=== PATIENT | male | born 1965 | race Two or more races ===

== ENCOUNTER 2023-05-09 06:56 | Emergency (ER) | payer OTHER ==
[~2023-05-09] VITALS: Ht 170.2 cm; Wt 72.6 kg
[2023-05-09] MEDS ORDERED: LAMOTRIGINE100 MG PO (06:58)
[2023-05-09] MEDS ORDERED: MIDODRINE HCL10 MG PO (06:58)
[2023-05-09] MEDS ORDERED: PLAVIX75 MG PO (06:58)
[2023-05-09] MEDS ORDERED: HORIZANT600 MG PO (06:59)
[2023-05-09] MEDS ORDERED: ECOTRIN81 MG PO (06:59)
[2023-05-09] MEDS ORDERED: KAPSPARGO SPRIN25 MG PO (06:59)
== END 2023-05-09 11:42 | disposition home or self-care (01) ==
LOC: ER 06:56
DX: R10.84 Generalized abdominal pain (principal)

== ENCOUNTER 2023-05-14 05:47 | Emergency (ER) | payer OTHER ==
[~2023-05-14] VITALS: Ht 167.6 cm; Wt 72.1 kg
[~2023-05-14 05:47] MED LIST: ECOTRIN81 MG PO; HORIZANT600 MG PO; KAPSPARGO SPRIN25 MG PO; LAMOTRIGINE100 MG PO; MIDODRINE HCL10 MG PO; PLAVIX75 MG PO
== END 2023-05-14 13:43 | disposition home or self-care (01) ==
LOC: ER 05:47
DX: R10.84 Generalized abdominal pain (principal)
CPT/HCPCS: 36415; 74176; 74240; 96365; 96372; 99284; J1885; J2550

== ENCOUNTER 2023-06-05 08:21 | Emergency (ER) | payer OTHER ==
[~2023-06-05] VITALS: Ht 167.6 cm; Wt 74.8 kg
== END 2023-06-05 12:46 | disposition home or self-care (01) ==
LOC: ER 08:21
PROVIDERS: Emergency Medicine
DX: N20.1 Calculus of ureter (principal); J90 Pleural effusion, not elsewhere classified; E11.9 Type 2 diabetes mellitus without complications; Z79.84 Long term (current) use of oral hypoglycemic drugs; I10 Essential (primary) hypertension; I25.2 Old myocardial infarction
CPT/HCPCS: 36415; 74176; 96365; 99284; J3490

== ENCOUNTER 2023-09-03 10:51 | Emergency (ER) | payer OTHER ==
[~2023-09-03] VITALS: Ht 167.6 cm; Wt 72.6 kg
[2023-09-03 12:29] LABS: PH,URINE 5.5 (5.0-8.0); URINE APPEARANCE Cloudy; URINE BILIRRUBIN Negative (NEGATIVE); URINE BLOOD Large; URINE COLOR Yellow; URINE LEUKOCYTE Small; URINE NITRATE Negative; URINE UROBILINOGEN 0.2 E.U./dl
[2023-09-03 12:32] LABS: HEMATOCRIT 35.5 % (39.0-48.0); HEMOGLOBIN 11.7 g/dL (13-16.00); MEAN CELL VOLUME 96.2 fL (80.0-100.00); MEAN CORPUSCULAR HEMOGLOBIN 31.9 pg (27.00-32.0); MEAN CORPUSCULAR HGB CONC 33.1 g/dl (32.0-36.0); PLATELET COUNT 258 K/uL (150-450); RED BLOOD COUNT 3.69 M/uL (4.00-6.00); RED CELL DISTRIBUTION WIDTH 15.1 % (11.5-14.5)
[2023-09-03 12:33] LABS: URINE EPITHELIAL CELLS 2.1 uL (0.0-38.8); URINE RBC 2104.4 uL (0.0-20.8); URINE WBC 1512.9 uL (0.0-23.2)
[2023-09-03 12:35] LABS: URINE BACTERIA > 9821.5 uL (0.0-1933); URINE GLUCOSE >=1000 MG/DL (NEGATIVE); URINE PROTEIN 300 (NEGATIVE)
[2023-09-03] MEDS ORDERED: LEVOFLOXACIN750 MG PO (13:02)
== END 2023-09-03 13:17 | disposition home or self-care (01) ==
LOC: ER 10:51
PROVIDERS: General Practice
DX: N39.0 Urinary tract infection, site not specified (principal); R30.0 Dysuria; I11.9 Hypertensive heart disease without heart failure; E11.9 Type 2 diabetes mellitus without complications; Z87.442 Personal history of urinary calculi
CPT/HCPCS: 36415; 96372; 99284; J0696